=== PATIENT | male | born 1990 | race Hispanic/Latino ===

== ENCOUNTER → 2017-11-22 | Outpatient (CLI) | payer OTHER ==
[~2017-11-22] MED LIST: ULCER MED
--- NOTE | 2017-11-22 15:48 | Diagnostic Imaging Report ---
PROCEDURE:X-RAY MODIFIED BARIUM SWALLOW COMPARISON:None. INDICATIONS:Dysphagia, GERD DISCUSSION:Fluoroscopic examination was performed in conjunction with speech pathology, during swallowing of a variety of thin and thick liquid consistencies. Fluoroscopy time: 49 seconds Cumulative air kerma: 1.77 mGy CONCLUSION:No penetration or aspiration. Please see the report from speech pathology for complete details. Dictated by: Wing Orta M.D. on 11/22/2017 at 15:52 Electronically approved by: Wing Orta M.D. on 11/22/2017 at 15:52
== END ==
LOC: DX 11:18
PROVIDERS: ATTEND Otolaryngology
DX: R13.13 Dysphagia, pharyngeal phase (principal)
CPT/HCPCS: 74230; 92611; G8996; G8997; G8998

== ENCOUNTER → 2019-04-04 | Day surgery (SDC) | payer OTHER ==
[~2019-04-04] MED LIST changes: +FENTANYL CITRATE/PF 100MCG/2 ML INJ ONE; +MIDAZOLAM HCL 2 MG/2 ML VIAL ONE; +OMEPRAZOLE40 MG; +PANTOPRAZOLE SO40 MG PO; +PROPOFOL IV EMULSION 10 MG/ML 20 ML VIAL ONE
[2019-04-04 11:15] VITALS: BP 111/84
--- NOTE | 2019-04-04 12:14 | Operative Report ---
DATE OF PROCEDURE: 04/04/2019 SURGEON: Antonino Harris MD PROCEDURE: EGD with biopsies. INDICATIONS FOR EGD: Upper abdominal pain, heartburn. MEDICATIONS: The patient was done under MAC, please see anesthesiologist's note. PROCEDURE IN DETAIL: With the patient in left lateral decubitus position, a flexible fiberoptic Olympus gastroscope was introduced into the esophagus under direct visualization without any difficulty. There was some diffuse erythema noted in the esophagus and biopsies were obtained to rule out eosinophilic esophagitis. The scope was then advanced with ease into the stomach. Mucosa overlying the antrum and the body revealed some diffuse erythema and low-grade to moderate edema, and biopsies were obtained and sent to stain for H. pylori. Pylorus was of normal contour and shape. It was intubated with ease and the scope was advanced all the way to the second portion of the duodenum. Biopsies were obtained from the proximal second portion and duodenal bulb to rule out sprue. The scope was then withdrawn back into the stomach and retroflexed, mucosa overlying the fundus and the cardia appeared to be within normal limits. The scope was then straightened out, it was subsequently withdrawn, and the patient tolerated the procedure well. IMPRESSION: 1. Distal esophagitis, biopsies obtained to rule out eosinophilic esophagitis. 2. Gastritis, biopsied, biopsies sent to stain for Helicobacter pylori. 3. Rule out sprue. PLAN: Follow up histology. Continue Protonix 40 mg 1 p.o. before meals b.i.d. Initiate Carafate 1 g p.o. before meals t.i.d. and at bedtime. Antonino Harris MD [facility] [place] /[id number]
== END | disposition home or self-care (01) ==
LOC: OR 09:11
PROVIDERS: ATTEND Internal Medicine Gastroenterology
DX: K20.9 Esophagitis, unspecified (principal); K29.50 Unspecified chronic gastritis without bleeding; K21.9 Gastro-esophageal reflux disease without esophagitis; K59.00 Constipation, unspecified
CPT/HCPCS: 43239; J2250; J2704; J3010

== ENCOUNTER → 2022-10-29 | Day surgery (SDC) | payer OTHER ==
[~2022-10-29] MED LIST changes: +LACTATED RINGER'S 1,000 ML ONE; +LIDOCAINE HCL 2% LOCAL INJ 5 ML SDV VIAL INJ ONE
[2022-10-29 13:35] VITALS: BP 114/80; PULSE 66; RESP 18; O2SAT 99
[2022-11-03 07:19] LABS: ENDOMYSIAL ANTIBODIES, IGA Negative (Negative)
== END | disposition home or self-care (01) ==
LOC: OR 08:44
PROVIDERS: ATTEND Internal Medicine Gastroenterology
DX: K21.9 Gastro-esophageal reflux disease without esophagitis (principal); K63.5 Polyp of colon; K29.50 Unspecified chronic gastritis without bleeding; K22.10 Ulcer of esophagus without bleeding; K64.8 Other hemorrhoids; K62.5 Hemorrhage of anus and rectum; Z86.16 Personal history of COVID-19
CPT/HCPCS: 43239; 45385; 82784; 83516; 86256; C9113; J2001; J2250; J2704; J3010; J7121; 45378